=== PATIENT | male | born 1980 | race Hispanic/Latino ===

== ENCOUNTER 2021-01-20 | Emergency (ER) | payer SELFPAY ==
[~2021-01-20] MED LIST: AMOXIL500 MG OR; ATUSS DS OR; CLONIDINE0.1 MG OR; ENALAPRIL20 MG OR; HYDROCHLOROT12.5 MG PO; LEXAPRO10 MG OR; NORVASC PO; NORVASC5 MG OR
[2021-01-20 16:15] LABS: HEMATOCRIT 46.1 % (39.0-50.0); HEMOGLOBIN 15.8 g/dl (14.0-18.0); IMMATURE GRANULOCYTES 0.4 % (0.0-5.0); MEAN CORPUSCULAR HGB 27.8 pG CALC (26.0-32.0); MEAN CORPUSCULAR HGB CONC 34.3 g/dL CAL (32.0-36.0); NEUT# 5.31 thou/uL (1.82-7.42); RED BLOOD COUNT 5.69 mill/uL (4.70-6.10); RED CELL DISTRI WIDTH 12.4 % (11.5-15.5)
[2021-01-20 16:35] LABS: ALBUMIN 4.7 g/dL (3.2-5.0); ALKALINE PHOSPHATASE 73 u/l (38-126); ANION GAP 13 (6-22 (CALC)); BUN 12 mg/dL (9-20); BUN/CREATININE RATIO 15 (12-20 (CALC)); CARBON DIOXIDE 28 mmol/l (22-30); CHLORIDE 100 mmol/l (95-108); CREATININE 0.8 mg/dL (0.7-1.3); GFR > 60 ML/MIN (>=60 (CALC)); GFR FOR AFR.AMER. > 60 ML/MIN (>=60 (CALC)); POTASSIUM 3.8 mmol/l (3.5-5.1); SGOT/AST 25 u/l (17-59); SODIUM 137 mmol/l (137-146)
[2021-01-20 16:38] LABS: BILIRUBIN, TOTAL 0.9 mg/dL (0.0-1.4)
[2021-01-20] MEDS ORDERED: NORVASC5 M1 PO (17:43)
[2021-01-20 17:49] LABS: URINE BILIRUBIN - DIPSTICK NEGATIVE (NEGATIVE); URINE BLOOD DIPSTICK NEGATIVE (NEGATIVE); URINE COLOR YELLOW; URINE GLUCOSE - DIPSTICK NEGATIVE (NEGATIVE); URINE KETONE 15 mg/dL (NEGATIVE); URINE LEUK ESTERASE NEGATIVE (NEGATIVE); URINE PROTEIN - DIPSTICK NEGATIVE (NEG-TRACE); URINE SPECIFIC GRAVITY >=1.030; URINE UROBILINOGEN - DIPSTICK 0.2 E.U./dL (0.2)
[2021-01-20 17:51] LABS: URINE NITRITE - DIPSTICK NEGATIVE (Negative)
[2021-01-20] MEDS ORDERED: ATIVAN1 MG PO (18:05)
[2021-01-27] MEDS ORDERED: ATIVAN1 MG PO (11:03)
== END 2021-01-20 18:41 | disposition home or self-care (01) | DRG 880 ==
DX: F41.9 Anxiety disorder, unspecified (principal); I10 Essential (primary) hypertension; T46.5X6A Underdosing of other antihypertensive drugs, initial encounter; F17.210 Nicotine dependence, cigarettes, uncomplicated; Z91.128 Patient's intentional underdosing of medication regimen for other reason

== ENCOUNTER 2021-01-26 14:58 | Emergency (ER) | payer SELFPAY ==
[~2021-01-26 14:58] MED LIST changes: +ATIVAN1 MG PO; +NORVASC5 M1 PO
[2021-01-26 15:38] LABS: HEMATOCRIT 45.3 % (39.0-50.0); HEMOGLOBIN 16.2 g/dl (14.0-18.0); IMMATURE GRANULOCYTES 0.3 % (0.0-5.0); MEAN CELL VOLUME 79.1 fL CALC (80.0-100.0); MEAN CORPUSCULAR HGB 28.3 pG CALC (26.0-32.0); MEAN CORPUSCULAR HGB CONC 35.8 g/dL CAL (32.0-36.0); NEUT# 5.76 thou/uL (1.82-7.42); RED BLOOD COUNT 5.73 mill/uL (4.70-6.10); RED CELL DISTRI WIDTH 12.3 % (11.5-15.5)
[2021-01-26 15:50] LABS: ALBUMIN 4.3 g/dL (3.2-5.0); ALKALINE PHOSPHATASE 70 u/l (38-126); ANION GAP 12 (6-22 (CALC)); BUN 14 mg/dL (9-20); BUN/CREATININE RATIO 17 (12-20 (CALC)); CARBON DIOXIDE 24 mmol/l (22-30); CHLORIDE 100 mmol/l (95-108); CREATININE 0.8 mg/dL (0.7-1.3); GFR > 60 ML/MIN (>=60 (CALC)); GFR FOR AFR.AMER. > 60 ML/MIN (>=60 (CALC)); SGOT/AST 24 u/l (17-59); SODIUM 133 mmol/l (137-146)
[2021-01-26 16:20] LABS: TSH, 3RD GENERATION 0.57 uIU/mL (0.47 - 4.68)
[2021-01-26] MEDS ORDERED: ATIVAN1 MG PO (16:30)
[2021-01-26 16:40] VITALS: BP 157/80
[2021-01-27] MEDS ORDERED: ATIVAN1 MG PO (11:03)
== END 2021-01-26 16:45 | disposition home or self-care (01) | DRG 880 ==
LOC: ED 14:58
PROVIDERS: Family Medicine
DX: F41.9 Anxiety disorder, unspecified (principal); I10 Essential (primary) hypertension; F17.210 Nicotine dependence, cigarettes, uncomplicated; Z86.16 Personal history of COVID-19